=== PATIENT | male | born 1965 ===

== ENCOUNTER 2017-10-05 07:13 | Emergency (ER) | payer BC ==
--- NOTE | 2017-10-05 07:18 | UC ---
Respiratory Complaint HPI - HPI Summary HPI Summary: 52 year old male presents with cough and chest congestion. - History of Current Complaint Stated Complaint: COUGH, EARS Time Seen by Provider: 10/05/17 07:17 Hx Obtained From: Patient Onset/Duration: Sudden Onset Severity Initially: Moderate Severity Currently: Moderate - Allergies/Home Medications Allergies/Adverse Reactions: Allergies Allergy/AdvReac Type Severity Reaction Status Date / Time No Known Allergies Allergy Verified 10/05/17 07:21 Home Medications: Home Medications Omeprazole CAP* [Prilosec CAP* 20 MG] 20 mg PO DAILY 10/05/17 [History Confirmed 10/05/17] PMH/Surg Hx/FS Hx/Imm Hx Previously Healthy: Yes - Surgical History Surgical History: None - Social History Alcohol Use: Weekly Substance Use Type: None Smoking Status (MU): Former Smoker Type: Cigarettes Length of Time of Smoking/Using Tobacco: 12 years Review of Systems Constitutional: Negative Skin: Negative Eyes: Negative ENT: Nasal Discharge, Sinus Congestion, Sinus Pain/Tenderness Respiratory: Cough Cardiovascular: Negative Gastrointestinal: Negative Genitourinary: Negative Motor: Negative Neurovascular: Negative Musculoskeletal: Negative Neurological: Negative Psychological: Negative All Other Systems Reviewed And Are Negative: Yes Physical Exam Triage Information Reviewed: Yes Vital Signs Reviewed: Yes Eye Exam: Normal ENT Exam: Normal Dental Exam: Normal Neck exam: Normal Neck: Positive: 1 Respiratory: Positive: Rhonchi, Wheezing Cardiovascular Exam: Normal Abdominal Exam: Normal Musculoskeletal Exam: Normal Neurological Exam: Normal Psychological Exam: Normal Skin Exam: Normal Respiratory Course/Dx - Differential Dx/Diagnosis Provider Diagnoses: cough Discharge - Discharge Plan Condition: Stable Disposition: HOME Prescriptions: Albuterol HFA INHALER* [Ventolin HFA Inhaler*] 1 puff INH Q6H PRN #1 mdi PRN Reason: Wheezing Azithromyxin BHUPENDRA (NF) [Z-Bhupendra (Zithromax) 250 mg tabs #6] 2 tab PO .TODAY, THEN 1 DAILY #6 tab Guaifenesin-Codeine [Cheratussin AC] 1 teasp PO Q8H PRN #120 ml MDD 15 ml PRN Reason: Cough Methylprednisolone [Medrol Dosepak 4 MG*] 4 mg PO .SEE BHUPENDRA INSTRUCTION #21 tab Patient Education Materials: Acute Bronchitis (ED) Referrals: Santosh Dos Santos DO [Primary Care Provider] -
[2017-10-05 07:34] VITALS: BP 158/89
== END 2017-10-05 07:39 | disposition home or self-care (01) ==
LOC: UCCORT 07:13
DX: R05 Cough (principal); Z87.891 Personal history of nicotine dependence
CPT/HCPCS: 99212; G0463

== ENCOUNTER 2019-08-17 07:30 | Emergency (ER) | payer BC ==
--- OUTSIDE RECORDS SUMMARY | 2019-08-17 07:40 | XMS REPORT | Continuity of Care Document ---
:1965 External Reference #:[id number] Author Name Santosh Dos Santos D.O. Address [address] [place] [address] Problems Active Problems Provider Date Gastroesophageal reflux disease Santosh Dos Santos D.O. Onset: 05/21/2014 Adjustment disorder with mixed emotional Santosh Dos Santos D.O. Onset: 2013 features Abnormal feces Santosh Dos Santos D.O. Onset: 06/21/2014 Insomnia Santosh Dos Santos D.O. Onset: 10/11/2014 Atopic dermatitis Santosh Dos Santos D.O. Onset: 11/01/2014 Type 2 diabetes mellitus Santosh Dos Santos D.O. Onset: 03/07/2018 Social History Type Date Description Comments Sex Unknown ETOH Use Occasionally consumes alcohol Recreational Drug Use Denies Drug Use Tobacco Use Start: Unknown Patient is a former Quit 2010 - smoked End: Unknown smoker 10-15 years of 1/2 to 3/4ppd = 5pack/yrs - 11pack/yrs sporatically Smoking Status Reviewed: 08/14/19 Patient is a former Quit 2010 - smoked smoker 10-15 years of 1/2 to 3/4ppd = 5pack/yrs - 11pack/yrs sporatically Exercise Type/Frequency Exercises regularly Sun Exposure Does not use sunscreen Seat Belt/Car Seat Seat Belt Use - Yes Allergies, Adverse Reactions, Alerts Description No Known Drug Allergies Medications Active Medications SIG Qnty Indications Ordering Provider Date Metformin HCL take 1 tablet by 90tabs Santosh Dos Santos, 03/07/2018 500mg mouth once daily D.O. Tablets Omeprazole take 1 capsule by 90caps K21.9 Santosh Dos Santos, 12/31/2017 20mg mouth once daily D.O. Capsules DR Immunizations CPT Code Status Date Vaccine Lot # [id number] Given 08/14/2019 Influenza Virus Vaccine, Quadrivalent, Split, Preservative Free Vital Signs Date Vital Result Comment 08/14/2019 4:04pm BP Systolic 126 mmHg BP Diastolic 84 mmHg Weight 234.00 lb 02/25/2019 4:41pm BP Systolic 128 mmHg BP Diastolic 82 mmHg Height 69.5 inches 5'9.50" Weight 227.00 lb BMI (Body Mass Index) 33.0 kg/m2 Results Test Date Facility Test Result H/L Range Note Laboratory test finding 08/14/2019 In House Hemoglobin A1c 6.1 Laboratory test finding 02/25/2019 In House Hemoglobin A1c 6.2 Procedures Date Code Description Status 08/14/2019 553880798 Diabetic Foot Exam Completed 05/12/2019 [id number] Colonoscopy Completed Medical Devices Description No Information Available Encounters Type Date Location Provider Dx Diagnosis Office Visit 02/25/2019 Main Office Santosh Dos Santos, E11.9 Type 2 diabetes 4:30p D.O. 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 08/14/2019 Z79.84 [facility] (current) use of oral hypoglycemic Santosh Dos Santos D.O. drugs 08/14/2019 K21.9 Gastro-esophageal reflux disease without Santosh Dos Santos D.O. esophagitis 08/14/2019 R03.0 Elevated blood-pressure reading, without Santosh Dos Santos D.O. diagnosis of hypert 02/25/2019 E11.9 Type 2 diabetes mellitus without complications Santosh Dos Santos D.O. 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 drugs Plan of Treatment 08/14/2019 - Santosh Dos Santos D.O.E11.9 Type 2 diabetes mellitus without complicationsReferral:Paul Glynn, OphthalmologyFollow up:[place] Shingrix #1 and 2 4 months DM w/ A1cZ79.84 [facility] (current) use of oral hypoglycemic qwtveQ66.9 Gastro-esophageal reflux disease without kilvnfgyvktF32.0 Elevated blood-pressure reading, without diagnosis of hypert Functional Status Description No Information Available Mental Status Description No Information Available Referrals Refer to Reason for Referral Status Appt Date Paul Glynn DM eye check Created [address] [place] [id number] [phone]
[2019-08-17 07:45] VITALS: BP 146/85
--- NOTE | 2019-08-17 08:13 | UC ---
UC General HPI - HPI Summary HPI Summary: 54-year-old male comes in with a chief complaint of 3 days of headache and neck pain back pain fevers and chills. This reminds him of prior episodes of viral meningitis. He's been taking ibuprofen and Tylenol which helps minimally with the symptoms. Headache is worse in the frontal area. Neck hurts to bend. No cough or chest congestion no sore throat. Has had some diarrhea. Did receive a flu immunization 2 days ago. No abdominal pain. Back pain is worse with movement of the legs. No burning with urination a UTI symptoms. - History of Current Complaint Chief Complaint: UCGeneralIllness Stated Complaint: YAÑEZ,BACKPAIN,STIFF NECK Time Seen by Provider: 08/17/19 07:46 Pain Intensity: 9 - Allergy/Home Medications Allergies/Adverse Reactions: Allergies Allergy/AdvReac Type Severity Reaction Status Date / Time No Known Allergies Allergy Verified 08/17/19 07:38 Home Medications: Home Medications Acetaminophen [Acetaminophen Extra Strength] 1,000 mg PO Q6H PRN 08/17/19 [ History Confirmed 08/17/19] Ibuprofen TAB* [Advil TAB*] 600 mg PO Q6H PRN 08/17/19 [History Confirmed ] metFORMIN* [Glucophage 500 MG TAB *] 500 mg PO DAILY 08/17/19 [History Confirmed 08/17/19] PMH/Surg Hx/FS Hx/Imm Hx Previously Healthy: Yes - HX VIRAL MENINGITIS Endocrine History: Diabetes GI/ History: Gastroesophageal Reflux - Surgical History Surgical History: None - Social History Alcohol Use: Occasionally Substance Use Type: None Smoking Status (MU): Former Smoker Type: Cigarettes Length of Time of Smoking/Using Tobacco: 12 years - Immunization History Most Recent Influenza Vaccination: ~09/20/17 Review of Systems All Other Systems Reviewed And Are Negative: Yes Constitutional: Positive: Fever, Chills, Other - SEE HPI Skin: Positive: Negative Eyes: Positive: Negative ENT: Positive: Negative Respiratory: Positive: Negative Cardiovascular: Positive: Negative Gastrointestinal: Positive: Diarrhea Genitourinary: Positive: Negative Motor: Positive: Negative Neurovascular: Positive: Negative Musculoskeletal: Positive: Other: - SEE HPI Neurological: Positive: Headache Psychological: Positive: Negative Is Patient Immunocompromised?: No Physical Exam Triage Information Reviewed: Yes Appearance: Well-Nourished, Ill-Appearing - MILD, Pain Distress - MILD Vital Signs: Initial Vital Signs Temp 97.6 F 08/17/19 07:41 Pulse 117 08/17/19 07:41 Resp 17 08/17/19 07:41 BP 146/85 08/17/19 07:41 Pulse Ox 98 08/17/19 07:41 Vital Signs Reviewed: Yes Eye Exam: Normal Eyes: Positive: Conjunctiva Clear ENT: Positive: Pharynx normal, TMs normal Neck: Positive: Nuchal Rigidity Respiratory: Positive: Lungs clear Cardiovascular: Positive: Tachycardia Abdomen Description: Positive: Nontender, Soft Musculoskeletal: Positive: Strength Intact Neurological: Positive: Alert Psychological: Positive: Age Appropriate Behavior Skin Exam: Normal Course/Dx - Course Course Of Treatment: Due to the constellation of symptoms of fever headache neck pain and back pain similar to prior history of viral meningitis I recommended further evaluation in the emergency department patient prefers to go by POV. - Diagnoses Provider Diagnosis: Headache, Fever, Neck stiffness, Back pain Discharge ED - Sign-Out/Discharge Documenting (check all that apply): Patient Departure All imaging exams completed and their final reports reviewed: No Studies - Discharge Plan Condition: Stable Disposition: HOME-RECOMMEND TO ED Referrals: Santosh Dos Santos DO [Primary Care Provider] - Additional Instructions: GO DIRECTLY TO THE EMERGENCY DEPARTMENT FOR FURTHER EVALUATION AND CARE OF YOUR HEADACHE, FEVER, NECK AND BACK PAIN. - Billing Disposition and Condition Condition: STABLE Disposition: Home-Recommend to ED
== END 2019-08-17 08:21 | disposition home health service (06) ==
LOC: UCCORT 07:30
DX: R51 Headache (principal); R50.9 Fever, unspecified; M43.6 Torticollis; M54.9 Dorsalgia, unspecified; R19.7 Diarrhea, unspecified; R00.0 Tachycardia, unspecified; E11.9 Type 2 diabetes mellitus without complications; Z79.84 Long term (current) use of oral hypoglycemic drugs; Z87.891 Personal history of nicotine dependence; Z86.61 Personal history of infections of the central nervous system
CPT/HCPCS: 99212; G0463

== ENCOUNTER 2020-01-24 07:04 | Emergency (ER) | payer BC ==
[2020-01-24 07:22] VITALS: BP 140/89
--- NOTE | 2020-01-24 07:39 | UC ---
Throat Pain/Nasal Alexis HPI - HPI Summary HPI Summary: 54-year-old male comes in with a chief complaint of 2 weeks of upper respiratory tract infection symptoms. He has been having yellow rhinorrhea. Is also having coughing and some wheezing and chest congestion. Is not seen any of the sputum. Does not have a history of asthma. - History of Current Complaint Chief Complaint: UCRespiratory Stated Complaint: HEAD AND CHEST CONGESTION Time Seen by Provider: 01/24/20 07:25 Pain Intensity: 0 - Allergies/Home Medications Allergies/Adverse Reactions: Allergies Allergy/AdvReac Type Severity Reaction Status Date / Time No Known Allergies Allergy Verified 01/24/20 07:17 Home Medications: Home Medications Omeprazole CAP (NF) [Prilosec CAP* 20 MG] 20 mg PO DAILY 10/05/17 [History Confirmed 01/24/20] Acetaminophen [Acetaminophen Extra Strength] 1,000 mg PO Q6H PRN 08/17/19 [ History Confirmed 01/24/20] Ibuprofen TAB* [Advil TAB*] 600 mg PO Q6H PRN 08/17/19 [History Confirmed ] metFORMIN* [Glucophage 500 MG TAB *] 500 mg PO DAILY 08/17/19 [History Confirmed 01/24/20] Albuterol HFA INHALER* [Ventolin HFA Inhaler*] 2 puff INH Q4H PRN #1 mdi [Rx] DOXYcycline CAP(*) [DOXYcycline 100MG CAP(*)] 100 mg PO BID #20 cap 01/24/20 [Rx ] PMH/Surg Hx/FS Hx/Imm Hx Previously Healthy: Yes Endocrine History: Diabetes GI/ History: Gastroesophageal Reflux - Surgical History Surgical History: None - Social History Alcohol Use: Occasionally Substance Use Type: None Smoking Status (MU): Former Smoker Type: Cigarettes Length of Time of Smoking/Using Tobacco: 12 years When Did the Patient Quit Smoking/Using Tobacco: ~2010 - Immunization History Most Recent Influenza Vaccination: ~09/20/17 Review of Systems All Other Systems Reviewed And Are Negative: Yes Constitutional: Positive: Other - see hpi Skin: Positive: Negative Eyes: Positive: Negative ENT: Positive: Nasal Discharge, Sinus Congestion Respiratory: Positive: Cough, Other - see hpi Cardiovascular: Positive: Negative Gastrointestinal: Positive: Negative Motor: Positive: Negative Neurovascular: Positive: Negative Musculoskeletal: Positive: Negative Neurological/Mental Status: Positive: Negative Psychological: Positive: Negative Is Patient Immunocompromised?: No Physical Exam Triage Information Reviewed: Yes Appearance: Well-Appearing, No Pain Distress, Well-Nourished Vital Signs: Initial Vital Signs Temp 96.8 F 01/24/20 07:12 Pulse 90 01/24/20 07:12 Resp 18 01/24/20 07:12 BP 140/89 01/24/20 07:12 Pulse Ox 99 01/24/20 07:12 Vital Signs Reviewed: Yes Eye Exam: Normal Eyes: Positive: Conjunctiva Clear ENT: Positive: Pharynx normal, Nasal congestion, TMs normal Neck: Positive: Supple Respiratory: Positive: No respiratory distress, Rhonchi Cardiovascular: Positive: RRR Musculoskeletal: Positive: Strength Intact, ROM Intact Neurological: Positive: Alert, Muscle Tone Normal Psychological: Positive: Age Appropriate Behavior Skin Exam: Normal Throat Pain/Nasal Course/Dx - Differential Dx/Diagnosis Provider Diagnosis: Bronchitis with bronchospasm Discharge ED - Sign-Out/Discharge Documenting (check all that apply): Patient Departure All imaging exams completed and their final reports reviewed: No Studies - Discharge Plan Condition: Stable Disposition: HOME Prescriptions: Albuterol HFA INHALER* [Ventolin HFA Inhaler*] 2 puff INH Q4H PRN #1 mdi PRN Reason: Wheezing DOXYcycline CAP(*) [DOXYcycline 100MG CAP(*)] 100 mg PO BID #20 cap Patient Education Materials: Acute Bronchitis (ED), Bronchospasm (ED) Referrals: Santosh Dos Santos DO [Primary Care Provider] - Additional Instructions: FOLLOW UP WITH YOUR DOCTOR IF NOT COMPLETELY IMPROVED. GET REEVALUATED SOONER IF NOT IMPROVED OR WORSE OR ANY QUESTIONS OR CONCERNS. - Billing Disposition and Condition Condition: STABLE Disposition: Home
== END 2020-01-24 07:46 | disposition home or self-care (01) ==
LOC: UCCORT 07:04
DX: J40 Bronchitis, not specified as acute or chronic (principal); J98.01 Acute bronchospasm; R09.89 Other specified symptoms and signs involving the circulatory and respiratory systems; K21.9 Gastro-esophageal reflux disease without esophagitis; E11.9 Type 2 diabetes mellitus without complications; Z87.891 Personal history of nicotine dependence; Z79.84 Long term (current) use of oral hypoglycemic drugs; Z79.899 Other long term (current) drug therapy
CPT/HCPCS: 99212; G0463